=== PATIENT | female | born 1990 | race Caucasian/White ===

== ENCOUNTER → 2016-08-02 | Outpatient (CLI) | payer OTHER ==
--- NOTE | 2016-08-02 14:06 | DI ---
VENOUS DOPPLER ULTRASOUND OF THE RIGHT LOWER EXTREMITY, 08/02/2016 11:52 AM: Clinical History: Right lower extremity swelling. Previous Exam: None. Technique: 2D real-time imaging is supplemented with color Doppler ultrasound. Compression and augmen tation maneuvers were performed. The long saphenous vein is normal. Reading: No evidence of deep venous thrombosis.
== END ==
LOC: LAB 11:45 → RAD 11:45
PROVIDERS: ATTEND Nurse Practitioner Family
DX: M79.661 Pain in right lower leg (principal); R22.41 Localized swelling, mass and lump, right lower limb
CPT/HCPCS: 93971

== ENCOUNTER → 2016-08-24 | Outpatient (CLI) | payer OTHER | LOC: US 09:55 | PROVIDERS: ATTEND Nurse Practitioner Family | DX: R10.2 Pelvic and perineal pain (principal); N83.292 Other ovarian cyst, left side; N83.291 Other ovarian cyst, right side | CPT/HCPCS: 76856 ==